=== PATIENT | female | born 1990 | race Caucasian/White ===

== ENCOUNTER 2016-09-06 12:58 | Emergency (ER) | payer MEDICAID ==
[~2016-09-06] VITALS: Wt 110.0 kg
[~2016-09-06 12:58] MED LIST: NO
[2016-09-06] MEDS ORDERED: SOD CHLORIDE 0.9% 1,000 ML IV STA (16:55)
--- NOTE | 2016-09-06 16:55 | ERD ---
ER Documentation Chief Complaint Date/Time DATE: 09/06/16 TIME: 16:53 Chief Complaint SYNCOPAL EPISODE TODAY AT WORK HPI 25-year-old female ambulatory to the ED for evaluation of syncope. 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 According to bystanders she hit the back of her head and now complains of a mild occipital headache but denies visual changes, neck pain, focal weakness or numbness. There was no seizure activity. Denies chest pain or palpitations. No shortness of breath or cough. Abdominal pain has resolved. No nausea or vomiting but did have one episode of diarrhea earlier this morning. Patient states she has had a history of similar episodes of syncope at least 3 times in the last year under similar conditions including sharp abdominal pain followed by dizziness and syncope. She also remembers having similar episodes as a teenager. No URI symptoms, rhinorrhea, odynophagia or body aches. No skin rash. No fevers or chills. ROS All systems reviewed and are negative except as per history of present illness. Medications Home Meds Reported Medications [No] No Conflict Check 05/12/11 [No] No Conflict Check 05/12/11 Allergies Allergies: Coded Allergies: No Known Allergies (Verified Allergy, Unknown, 05/12/11) PMhx/Soc Reviewed in chart. As per HPI. History of Surgery: Yes (Microdiscectomy L4-L5) Anesthesia Reaction: No Hx Neurological Disorder: No Hx Respiratory Disorders: No Hx Cardiac Disorders: No Hx Psychiatric Problems: No Hx Miscellaneous Medical Probl: Yes (Back pain) Hx Alcohol Use: No Hx Substance Use: Yes (MARIJUANA) Hx Tobacco Use: No FmHx No family history of heart disease or sudden cardiac . Grandparents have diabetes. Physical Exam Vitals Vital Signs Date Time Temp Pulse Resp B/P Pulse Ox O2 Delivery O2 Flow Rate FiO2 09/06/16 19:27 98.6 83 16 126/85 99 Room Air 09/06/16 17:00 98.6 78 18 128/76 99 09/06/16 13:00 99.0 81 18 132/76 99 Physical Exam Const: Alert, no acute distress Head: Atraumatic but mild occipital tenderness. Negative french sign. Eyes: Normal Conjunctiva. Pupils equal reactive to light, extraocular movements are intact. No nystagmus. ENT: Normal External Ears, Nose and Mouth. No intraoral injury. Neck: Full range of motion. No midline bony tenderness or paraspinal muscle spasm. Resp: Clear to auscultation bilaterally Cardio: Regular rate and rhythm, no murmurs Abd: Soft, obese. Non tender, non distended. Normal bowel sounds Skin: No petechiae or rashes Back: No midline or flank tenderness Ext: No cyanosis, or edema Neur: Awake and alert. Cranial nerves II through XII are grossly intact. Motor and sensory equal bilaterally. Normal gait. No focal deficit observed. Psych: Normal Mood and Affect. Patient does not appear anxious or depressed. Result Diagram: 09/06/16 1700 09/06/16 1700 Results 24 hrs Laboratory Tests Test 09/06/16 17:00 White Blood Count 10.110^3/ul Red Blood Count 4.6310^6/ul Hemoglobin 14.7g/dl Hematocrit 43.2% Mean Corpuscular Volume 93.3fl Mean Corpuscular Hemoglobin 31.7pg Mean Corpuscular Hemoglobin Concent 34.0g/dl Red Cell Distribution Width 12.2% Platelet Count 00959^3/UL Mean Platelet Volume 9.1fl Neutrophils % 74.7% Lymphocytes % 15.2% Monocytes % 9.2% Eosinophils % 0.3% Basophils % 0.3% Nucleated Red Blood Cells % 0.0/100WBC Neutrophils # 7.610^3/ul Lymphocytes # 1.510^3/ul Monocytes # 0.910^3/ul Eosinophils # 0.010^3/ul Basophils # 0.010^3/ul Nucleated Red Blood Cells # 0.010^3/ul Sodium Level 139mmol/L Potassium Level 3.8mmol/L Chloride Level 104mmol/L Carbon Dioxide Level 27mmol/L Anion Gap 12 Blood Urea Nitrogen 11mg/dl Creatinine 0.76mg/dl Glucose Level 97mg/dl Calcium Level 9.4mg/dl Current Medications Medications (Trade) Dose Ordered Sig/Jim Route PRN Reason Start Time Stop Time Status Last Admin Dose Admin Sodium Chloride (NS) 1,000 ml @ 1,000 mls/hr Q1H STAT IV 09/06/16 16:55 09/06/16 17:54 DC 09/06/16 17:46 EKG: TIME: 17:41. Sinus rhythm. Ventricular rate 74. Normal GA QRS. No ST-T wave changes. No ectopy. EP Interpretation: Sinus arrhythmia otherwise normal ECG. IMAGING: PROCEDURE: CT brain without contrast CLINICAL INDICATION: Head injury, syncope TECHNIQUE: CT of the brain without contrast was performed on a multidetector CT scanner, with multiplanar reformats. One or more of the following dose reduction techniques were used: Automated exposure control, adjustment in mA and / or kV according to patient size, use of iterative reconstructive technique. CTDIvol = 43 mGy; DLP = 720 mGy-cm. COMPARISON: None available FINDINGS: No acute intracranial hemorrhage is identified. No extra-axial fluid collection is seen. There is no mass effect. No midline shift is identified. Ventricles and sulci are within normal limits for size and configuration. The density of the brain is within normal limits. Gordillo-white differentiation is preserved. Osseous structures are unremarkable. Mastoid air cells and imaged paranasal sinuses grossly clear. IMPRESSION: Unremarkable noncontrast CT of the brain. RPTAT: VV .Norbert Hinkle MD, MD Date Time Electronically viewed and signed by .Norbert Hinkle MD, MD on 09/06/2016 17:44 .O/ PROCEDURE: US Abdomen. CLINICAL INDICATION: Abdominal pain. TECHNIQUE: Multiple real-time images were acquired of the patient's abdomen and retroperitoneum utilizing a high resolution transducer. COMPARISON: None FINDINGS: The visible portions of the head and proximal body of the pancreas are normal. The liver measures 15.6 cm AP. Portal vein is patent with normal blood flow. The common bile duct is normal measuring 4.4 mm. The gallbladder wall measures 1.5 mm. The gallbladder is small and contracted. Right kidney measures 12.4 cm in length. The left kidney and spleen are not evaluated. The abdominal aorta is not evaluated. IMPRESSION: 1. Partial visualization of the pancreas which was normal where visualized. 2. Fatty infiltration of the liver. 3. Small contracted gallbladder with a normal common bile duct. RPTAT:AAJJ Physician Yannick Date Time Electronically viewed and signed by Physician Yannick on 09/06/2016 17:36 JM/ Procedures/MDM DOCUMENTS REVIEWED: ED nurse, prior ED, prior records including an admission for microdiscectomy in 2010 and ED visit in October for chest pain. ED COURSE: Normal saline 1 L REEXAMINATION/REEVALUATION: Time:19:00. Doing well. Vital signs stable. Asymptomatic. MEDICAL DECISION MAKIN-year-old female ambulatory to the ED for evaluation of syncope. Patient fell sustained a closed head injury but no CT evidence of intracranial abnormality including subdural/epidural hematoma, hydrocephalus, mass or ischemia. Normal ECG without evidence of cardiac dysrhythmia. Doubt pulmonary emnolism. No anemia or significant orthostasis. Abdominal pain of uncertain etiology but no ultrasound evidence of cholelithiasis or cholecystitis. Multiple other etiologies considered including gastritis/GERD, peptic ulcer disease, ovarian cyst/torsion. Abdominal exam is benign without tenderness, rebound, guarding or other signs of peritonitis. Appendicitis is unlikely. Syncope likely vasovagal as she has had this many times in the past likely usually after pain or coughing. No anemia. No acute electrolyte abnormalities or dehydration. No seizures. Stable for discharge precautionary instructions and outpatient follow-up as counseled. Counseled patient regarding diagnostic workup, diagnosis and need for followup. Understands to return to ED if symptoms recur, worsen or any other concerns. Departure Diagnosis: Primary Impression: Syncope Syncope type: unspecified Qualified Code: R55 - Syncope, unspecified syncope type Additional Impressions: Syncope, vasovagal Abdominal pain of unknown etiology Marijuana abuse Condition: Stable JUAN CARMONA MD Sep 06, 2016 16:55
[2016-09-06 17:16] LABS: ADD SCAN DIFF NO
[2016-09-06 17:19] LABS: BASOPHILS % 0.3 % (0.0-2.0); EOSINOPHILS % 0.3 % (0.0-7.0); HEMATOCRIT 43.2 % (37.0-47.0); HEMOGLOBIN 14.7 g/dl (12.0-16.0); LYMPHOCYTES # 1.5 10^3/ul (0.8-2.9); LYMPHOCYTES % 15.2 % (15.0-51.0); MEAN CORPUSCULAR HEMOGLOBIN 31.7 pg (29.0-33.0); MEAN CORPUSCULAR VOLUME 93.3 fl (82.0-101.0); MEAN PLATELET VOLUME 9.1 fl (7.4-10.4); MONOCYTE # 0.9 10^3/ul (0.3-0.9); MONOCYTES % 9.2 % (0.0-11.0); NEUTROPHIL # 7.6 10^3/ul (1.6-7.5); NEUTROPHILS % 74.7 % (39.0-77.0); PLATELET COUNT 363 10^3/UL (140-415); RED BLOOD COUNT 4.63 10^6/ul (4.20-5.40); RED CELL DISTRIBUTION WIDTH 12.2 % (11.5-14.5); WHITE BLOOD COUNT 10.1 10^3/ul (4.8-10.8)
[2016-09-06 17:29] LABS: CALCIUM 9.4 mg/dl (8.4-10.2); CREATININE 0.76 mg/dl (0.44-1.00); POTASSIUM 3.8 mmol/L (3.5-5.1)
--- NOTE | 2016-09-06 17:37 | RADRPT ---
PROCEDURE: US Abdomen. CLINICAL INDICATION: Abdominal pain. TECHNIQUE: Multiple real-time images were acquired of the patient's abdomen and retroperitoneum ut ilizing a high resolution transducer. COMPARISON: None FINDINGS: The visible portions of the head and proximal body of the pancreas are normal. The liver measures 15.6 cm AP. Portal vein is patent with normal blood flow. The common bile duct is normal measuring 4.4 mm. The gallbladder wall measures 1.5 mm. The gallbladder is small and contracted. Right kidney measures 12.4 cm in length. The left kidney and spleen are not evaluated. The abdomina l aorta is not evaluated. IMPRESSION: 1. Partial visualization of the pancreas which was normal where visualized. 2. Fatty infiltration of the liver. 3. Small contracted gallbladder with a normal common bile duct. RPTAT:AAJJ Physician Yannick Date Time Electronically viewed and signed by Physician Yannick on 09/06/2016 17:36 FÁTIMA/
--- NOTE | 2016-09-06 17:44 | RADRPT ---
PROCEDURE: CT brain without contrast CLINICAL INDICATION: Head injury, syncope TECHNIQUE: CT of the brain without contrast was performed on a multidetector CT scanner, with multi planar reformats. One or more of the following dose reduction techniques were used: Automated expos ure control, adjustment in mA and / or kV according to patient size, use of iterative reconstructive technique. CTDIvol = 43 mGy; DLP = 720 mGy-cm. COMPARISON: None available FINDINGS: No acute intracranial hemorrhage is identified. No extra-axial fluid collection is seen. There is no mass effect. No midline shift is identified. Ventricles and sulci are within normal limits for size and configuration. The density of the brain is within normal limits. Gordillo-white differentiation is preserved. Osseous structures are unremarkable. Mastoid air cells and imaged paranasal sinuses grossly clear. IMPRESSION: Unremarkable noncontrast CT of the brain. RPTAT: VV .Norbert Hinkle MD, MD Date Time Electronically viewed and signed by .Norbert Hinkle MD, on 09/06/2016 17:44 .O/
[2016-09-06 19:27] VITALS: BP 126/85; PULSE 83; RESP 16; TEMP 98.6
== END 2016-09-06 19:29 | disposition home or self-care (01) ==
LOC: E/R 12:58
DX: R55 Syncope and collapse (principal); R10.9 Unspecified abdominal pain; F12.10 Cannabis abuse, uncomplicated
CPT/HCPCS: 70450; 76705; 80048; 85025; 93005; J7030; 36415

== ENCOUNTER 2018-08-14 11:44 | Emergency (ER) | payer MEDICAID ==
[~2018-08-14] VITALS: Ht 162.6 cm; Wt 119.0 kg
[2018-08-14 12:02] VITALS: BP 128/81; PULSE 107; RESP 24; Ht 162.6 cm; Wt 119.0 kg
[2018-08-14] MEDS ORDERED: ONDANSETRON (ODT) 4 MG TAB ODT STA (14:08)
[2018-08-14] MEDS ORDERED: CLINDAMYCIN 600 MG INJ IM ONE (14:30)
[2018-08-14] MEDS ORDERED: CLINDAMYCIN 300 MG INJ IM SCH (14:30)
[2018-08-14] MEDS ORDERED: DEXAMETHASONE 10 MG/ML 1 ML INJ IM ONE (14:30)
--- NOTE | 2018-08-14 14:37 | ERD ---
ER Documentation Chief Complaint Chief Complaint FEVER, SORE THROAT, BODY PAIN, DIARRHEA, VOMITITNG, CANT SLEEP HPI 27-year-old female presents for fever, sore throat, body pains times 3 days. She states that she has enlarged tonsils. She denies cough. She also comes of some abdominal pain, nausea, vomiting. No significant past medical history. ROS All systems reviewed and are negative except as per history of present illness. Medications Home Meds Reported Medications [No] No Conflict Check 05/12/11 [No] No Conflict Check 05/12/11 Allergies Allergies: Coded Allergies: No Known Allergies (Verified Allergy, Unknown, 08/14/18) PMhx/Soc History of Surgery: Yes (Microdiscectomy L4-L5) Anesthesia Reaction: No Hx Neurological Disorder: No Hx Respiratory Disorders: No Hx Cardiac Disorders: No Hx Psychiatric Problems: No Hx Miscellaneous Medical Probl: Yes (Back pain) Hx Alcohol Use: Yes (WEEKENDS) Hx Substance Use: Yes (MARIJUANA DAILY) Hx Tobacco Use: No Smoking Status: Never smoker Physical Exam Vitals Vital Signs Date Temp Pulse Resp B/P (MAP) Pulse Ox O2 O2 Flow FiO2 Time Delivery Rate 08/14/18 99.1 107 24 128/81 98 12:02 (97) Physical Exam Const: No acute distress Head: Atraumatic Eyes: Normal Conjunctiva ENT: Normal External Ears, bilateral tympanic membrane intact without erythema or bulging noted, nose and Mouth examination normal, bilateral tonsillar swelling noted with exudate noted with erythema over posterior roof of mouth on the right side Neck: Full range of motion. No meningismus. Resp: Clear to auscultation bilaterally, no wheezing, rales, rhonchi Cardio: Regular rate and rhythm, no murmurs Skin: No petechiae or rashes Ext: No cyanosis, or edema Neur: Awake and alert Psych: Normal Mood and Affect Results 24 hrs Current Medications Medications Dose Sig/Jim Start Time Status Last (Trade) Ordered Route PRN Stop Time Admin Dose Reason Admin Clindamycin 600 mg ONCE ONCE 08/14/18 DC Phosphate IM 14:30 (Cleocin) 08/14/18 14:30 10 mg ONCE ONCE 08/14/18 DC 08/14/18 Dexamethasone IM 14:30 14:27 (Decadron) 08/14/18 14:31 Ondansetron 4 mg ONCE STAT 08/14/18 DC 08/14/18 HCl (Zofran ODT 14:08 14:26 Odt) 08/14/18 14:09 Clindamycin 600 mg ONCE IM 08/14/18 DC 08/14/18 Phosphate 14:30 14:27 (Cleocin) 08/14/18 14:31 Procedures/MDM Medical Decision Making: Differential diagnosis includes but not limited to upper respiratory infection, pneumonia, sepsis, meningitis, colitis, peritonsillar abscess. Patient appeared well on physical examination, nontoxic appearing. Lungs were clear to auscultation bilaterally. There is low suspicion for pneumonia, sepsis, meningitis. Patient did have bilateral tonsillar swelling with exudate as well swelling of the posterior roof consistent with a peritonsillar abscess On-call ENT Dr. Gamez was contacted. Advise patient to follow-up in his office today. Patient was given a shot of clindamycin 600 mg IM as well as Decadron 10 mg IM Patient advised that she will need to follow with ENT Dr. Gamez today in his office for possible procedure. Further care to be determined by Dr. Gamez. Patient advised to follow up with PCP in 1-2 days. Patient advised to return to ED for new or worsening symptoms. Patient stable on discharge from the ED. Disclaimer: Inadvertent spelling and grammatical errors are likely due to EHR/dictation software use and do not reflect on the overall quality of patient care. Also, please note that the electronic time recorded on this note does not necessarily reflect the actual time of the patient encounter. Departure Diagnosis: Primary Impression: Peritonsillar abscess Condition: Fair Patient Instructions: Peritonsillar Abscess Referrals: HALEY GAMEZ MD [facility] YOU HAVE RECEIVED A MEDICAL SCREENING EXAM AND THE RESULTS INDICATE THAT YOU DO NOT HAVE A CONDITION THAT REQUIRES URGENT TREATMENT IN THE EMERGENCY DEPARTMENT. FURTHER EVALUATION AND TREATMENT OF YOUR CONDITION CAN WAIT UNTIL YOU ARE SEEN I N YOUR DOCTORS OFFICE WITHIN THE NEXT 1-2 DAYS. IT IS YOUR RESPONSIBILITY TO MAKE AN APPOINTMENT FOR FOLOW-UP CARE. IF YOU HAVE A PRIMARY DOCTOR --you should call your primary doctor and schedule an appointment IF YOU DO NOT HAVE A PRIMARY DOCTOR YOU CAN CALL OUR PHYSICIAN REFERRAL HOTLINE AT IF YOU CAN NOT AFFORD TO SEE A PHYSICIAN YOU CAN CHOSE FROM THE FOLLOWING [facility] [id number] [facility] [address] [facility] [facility] [address] [facility] [address] [facility] [address] [facility] [facility]. [address] Additional Instructions: Call your primary care doctor TOMORROW for an appointment during the next 1-2 days.See the doctor sooner or return here if your condition worsens before your appointment time. Go to ENT physician Dr. Gamez's office today at the address provided. May need procedure. SHARON MEJIA DO Aug 14, 2018 14:37
[2018-08-14] MEDS ORDERED: ACETAMINOPHEN 325 MG TAB PO ONE (15:00)
== END 2018-08-14 14:44 | disposition home or self-care (01) ==
LOC: FTE 11:44
DX: J36 Peritonsillar abscess (principal)
CPT/HCPCS: 96372; J1100; Z7502; Z7610